=== PATIENT | female | born 1970 | race Caucasian/White ===

== ENCOUNTER 2017-12-27 14:42 | Day surgery (SDC) | payer OTHER, SELFPAY ==
--- NOTE | 2017-12-27 | PATH_ITS ---
[facility] Accession Number: [id number] . 01 Material submitted: . PART A: DUODENIUM PART B: GASTRIC PART C: GE JUNCTION . 02 Diagnosis: A. Duodenum, Biopsy: Duodenal mucosa with no diagnostic abnormality. Negative for active inflammation, features of sprue, dysplasia and malignancy. . B. Stomach, Biopsies: Antral mucosa with no diagnostic abnormality. Negative for intestinal metaplasia. No evidence of Helicobacter on H/E stain. Negative for dysplasia and malignancy. . C. Gastroesophageal Junction, Biopsy: Squamocolumnar junctional mucosa with no diagnostic abnormality. Negative for intestinal metaplasia. Negative for dysplasia and malignancy. [facility]/12/29/2017 . 02 Electronically signed: . Luann Garza MD, Pathologist NPI- [id number] . 01 Gross description: . Part A: DUODENIUM: Received in formalin is 1 fragment(s) of gonzales, soft tissue measuring 0.2 x 0.2 x 0.1 cm submitted entirely in 1 cassette(s) Part B: GASTRIC: Received in formalin are 2 fragment(s) of gonzales, soft tissue measuring 0.3 x 0.2 x 0.2 cm to 0.2 x 0.2 x 0.1 cm submitted entirely in 1 cassette(s) Part C: GE JUNCTION: Received in formalin are 3 fragment(s) of gonzales, soft tissue measuring 0.2 x 0.2 x 0.1 cm to 0.1 x 0.1 x 0.1 cm submitted entirely in 1 cassette(s) /TRC /TRC . 02 Pathologist provided ICD-10: R10.9 . 02 CPT . 131862, 545406, [id number] Performed at: [address], [place], [place] [id number] MD Carlos Mcdaniel MD Phone: [phone] Performed at: 02 [facility] [place] [address] [place] [id number] MD Dillon Truong MD Phone: [phone]
[2017-12-27] MEDS: SODIUM CHLORIDE 0.9% 1,000 ML 200 ML IV (15:18)
[2017-12-27 15:19] VITALS: BP 115/77; RESP 16; TEMP 36.2; O2SAT 100; BMI 20.5
--- NOTE | 2017-12-27 16:11 | SUR.OPER ---
to endo from opd via cart tespirations unlabored iv patent positioned per self for procedure
--- NOTE | 2017-12-27 16:12 | P.HP_ITS ---
History of Present Illness Date Patient Seen: 12/27/17 Time Patient Seen: 16:09 Chief complaint: [id number] Narrative: Sabra 47-year-old lady referred by [facility] [employer] for EGD and colonoscopy. She reports her last colonoscopy was about 5 years ago and she did have some polyps removed. More acutely, she has been having severe reflux and burning sensation in her stomach. When her colonoscopy was done about 5 years ago they attempted an EGD at the same time but she did not wish to be put to sleep and they were not able to pass the scope with her fully awake. That portion of the procedure was aborted but she did go ahead and have a colonoscopy. She is here today to schedule an EGD and she understands that she will have to be very sleepy for us to be able to pass the gastroscope into her esophagus. She says she is willing to do that now because she needs some help for this burning problem. Patient History Family & Social History Family History: Reviewed 12/27/17 by Maile Solares MD Social History: household members spouse Meds Home Medications Medication Instructions Recorded Confirmed Type omeprazole 40 mg PO BID #60 cap 10/21/17 Rx ranitidine HCl [Zantac] 150 mg PO BID #60 tab 10/21/17 Rx alprazolam [Xanax] 0.5 mcg/kg PO PRN PRN 12/27/17 12/27/17 History bupropion HCl [Wellbutrin XL] 150 mg PO QAM 12/27/17 12/27/17 History levothyroxine [Levoxyl] 112 mcg PO DAILY 12/27/17 12/27/17 History Allergies Allergy/AdvReac Type Severity Reaction Status Date / Time doxycycline Allergy Unknown Gastrointestinal Verified 12/27/17 15:09 Upset erythromycin base Allergy Unknown Gastrointestinal Verified 12/27/17 15:09 Upset Sulfa (Sulfonamide Allergy Unknown Unverified 12/27/17 15:09 Antibiotics) [SULFA (SULFONAMIDE ANTIBIOTICS)] ondansetron [From Zofran] AdvReac Unknown Agitated Verified 12/27/17 15:14 Review of Systems Review of Systems All systems reviewed & are unremarkable except as noted in HPI and below Exam Vital Signs (past 8 hours): Vital Signs - 8 hr 3 12/27/17 15:19 Temperature 97.2 F L Respiratory Rate 16 Blood Pressure 115/77 Pulse Oximetry 100 Pulse Oximetry 100 Oxygen Delivery Method Room Air Narrative Exam Narrative: Pleasant well-nourished well-developed lady in no obvious distress HEENT: Normocephalic and atraumatic, pupils equal round reactive to light accommodation with anicteric sclera Lungs: Clear bilaterally Heart: Regular rate and rhythm without murmur rub or gallop Abdomen: Soft, nontender, active bowel sounds Extremities: Warm and well-perfused without edema Assessment & Plan Plan: Assessment/Plan Narrative: We have discussed the risks and benefits of EGD and colonoscopy including but not limited to infection, bleeding, damage to other organs or structures in the area, the risk of unexpected findings or result, and the risks associated with anesthesia including stroke, heart attack, and . Patient expressed an understanding of the risks and desired to have the procedure.
[2017-12-27 16:51] VITALS: BP 106/69; PULSE 78; RESP 12; TEMP 36.6; O2SAT 98
--- NOTE | 2017-12-27 16:51 | PM.OP.1 ---
Operative Date/Time/Diagnoses - Date of procedure: 12/27/17 Time of procedure: 16:51 Pre-op diagnosis: GERD Personal History of Colon Polyps Post-op diagnosis: same Procedure & Clinicians Procedure: Esophagogastroduodenoscopy with biopsies and colonoscopy Same procedure as scheduled: Yes Indications: GERD Personal history of colon polyps with last colonoscopy 5 years ago Surgeon: Maile Solares Click Yes if Unassisted: Yes Anesthesia Type: Sedation (fentanyl 300 mcg, versed 10 mg) Operative Notes Findings: 1. Normal duodenum 2. Very mild gastritis 3. GE junction at 39 cm from the incisors 4. Very regular appearing Z line with no evidence of hiatal hernia 5. Excellent prep 6. No polyps or mass lesions and no AV malformation 7. Grade 1 internal hemorrhoids Closure Type: not applicable Specimen(s): other (1. Cold forceps biopsy of the duodenum, 2. Cold forceps biopsy of the antrum, 3. Cold forceps biopsy of the GE junction) Estimated Blood Loss (mL): 1 Procedure in detail: After obtaining informed consent, the patient was brought to the GI suite and placed in the left lateral decubitus position on the examination table. After placement of appropriate monitors, the patient was given incremental doses of Versed and Fentanyl until an appropriate level of sedation was achieved. A time out was held per SCOAP protocol. We began with EGD. A bite block was gently placed between the patient's teeth. The endoscope was lubricated and then passed into the patient's posterior oropharynx. The esophagus was cannulated under direct vision and the scope was passed to the second portion of the duodenum without difficulty. The scope was then withdrawn with careful examination of all areas of the upper GI tract and mucosa. In the stomach, the instrument was retroflexed and the GE junction examined. The scope was straightened and the procedure continued with examination of the remainder of the upper GI tract. Findings are noted above. Air was aspirated from the stomach and the endoscope gently removed from the esophagus. The examination table was turned and we continued with the colonoscopy. A digital rectal examination was performed and did not reveal any masses or obstructing lesions. The colonoscope was gently passed into the patient's anus and the entire colon navigated to the level of the cecum with minimal difficulty. Once in the cecum, the scope was withdrawn being sure to go before and beyond all mucosal folds and prominences and get an excellent examination. The findings are noted above. At the level of the rectal vault, the scope was retroflexed and the internal anal canal was examined. The scope was straightened and air aspirated from the colon. The instrument was removed from the patient's body and the procedure was concluded. The patient was allowed to awaken from sedation without difficulty and taken to the post-anesthesia care unit in good condition. Total sedation time was 34 min Total colonoscopy withdrawal time was 13 min Complications: none Condition: stable Disposition: PACU Plan for aftercare: 1. Discharge to home 2. Plan for next colonoscopy in 5 years due to patient's history 3. Will contact you with pathology results and further recommendations
[2017-12-27] MEDS: fentaNYL 250 MCG/5 ML INJ IV (16:52)
[2017-12-27] MEDS: MIDAZOLAM 5 MG/5 ML VIAL IV (16:53)
[2017-12-27] MEDS: TETRACAINE/BENZOCAINE/BUTAMBEN (CETACAINE) BOTTLE 1 SPRAY TOP (16:54)
[2017-12-27] MEDS: LIDOCAINE 4% SOLN 50 ML 20 ML TOP (16:55)
[2017-12-27 16:56] VITALS: BP 106/69; PULSE 100; RESP 18; O2SAT 98
[2017-12-27 17:14] VITALS: BP 108/75; PULSE 80; RESP 15; TEMP 36.4; O2SAT 96
== END 2017-12-27 17:18 | disposition home or self-care (01) ==
PROVIDERS: PCP Registered Nurse Diabetes Educator; Visit Provider Surgery
PROC: 0DJ08ZZ Inspection of Upper Intestinal Tract, Via Natural or Artificial Opening Endoscopic (ICD-10-PCS; CPT 43235; principal; 2017-12-27 16:00)
PROC: 0DJD8ZZ Inspection of Lower Intestinal Tract, Via Natural or Artificial Opening Endoscopic (ICD-10-PCS; CPT 45378; 2017-12-27 16:00)
DX: K21.9 Gastro-esophageal reflux disease without esophagitis (principal); K29.70 Gastritis, unspecified, without bleeding; K64.0 First degree hemorrhoids; E06.3 Autoimmune thyroiditis
CPT/HCPCS: 43239; 45378; 88305; 99152; 99153; J2250; J3010

== ENCOUNTER → 2020-11-07 18:06 | Outpatient (CLI) | payer OTHER, SELFPAY ==
--- NOTE | 2020-11-07 18:08 | DI.MRI.S_ITS ---
PROCEDURE: MR CERVICAL SPINE WO CON INDICATIONS: OTHER SPONDYLOSIS,CERVICAL REGION TECHNIQUE: Noncontrast sagittal T1 spin echo and T2 fast spin echo, sagittal STIR, foraminal oblique sagittal T2 fast spin echo, and axial gradient echo or T2 fast spin echo through the cervical spine. COMPARISON: None. FINDINGS: Image quality: Excellent. Alignment and Curvature: There is normal bony alignment. Bone Marrow: Marrow demonstrates normal overall signal. Spinal Cord: Visualized spinal cord has normal size and signal. No cerebellar tonsillar herniation. Paraspinous Soft Tissues: No paravertebral masses. Prevertebral soft tissues are normal in thickness. C2-C3: Normal appearance. C3-C4: Normal appearance. C4-C5: Normal appearance. C5-C6: Moderate degenerative disc height reduction and disc desiccation with a posterior broad-based transverse disc bulge, which effaces CSF from the anterior thecal sac and is slightly larger on the right than the left. This results in mild anterior spinal stenosis, right greater than left, but no foraminal stenosis.. C6-C7: Zbra-gq-[id number] degenerative disc height reduction and desiccation, with a slight posterior disc bulge which does not efface CSF from the anterior thecal sac and there is no associated foraminal stenosis. C7-T1: Normal appearance. IMPRESSION: Moderate degenerative disc disease at C5-6, mild to moderate such degeneration at C6-7. No foraminal stenosis is found. There is mild anterior C5-6 right greater than left spinal stenosis, with potential for mild impingement on the course of the C5 nerve roots. The foraminal and spinal stenosis present is quite mild and minimal at C6-C7. No definite nerve root impingement at time of MR scanning. No herniated disc fragment is found. Dictated by: Azam Posey M.D. on 11/10/2020 at 13:26 Approved by: Azam Posey M.D. on 11/10/2020 at 13:57
== END ==
PROVIDERS: PCP Student in an Organized Health Care Education/Training Program; Referring Provider Student in an Organized Health Care Education/Training Program; Visit Provider Student in an Organized Health Care Education/Training Program
DX: M47.892 Other spondylosis, cervical region (principal); M50.322 Other cervical disc degeneration at C5-C6 level
CPT/HCPCS: 72141

== ENCOUNTER 2025-01-04 07:49 | Emergency (ER) | payer OTHER, SELFPAY ==
[2025-01-04 08:11] VITALS: BP 160/89; PULSE 97; RESP 20; TEMP 37; O2SAT 98; BMI 24.9
--- NOTE | 2025-01-04 08:14 | DI.RAD.S_ITS ---
PROCEDURE: XR CHEST 2V INDICATIONS: cough TECHNIQUE: 2 views of the chest were acquired. COMPARISON: None. FINDINGS: Surgical changes and devices: None. Lungs and pleura: Lungs are clear. No pleural effusions or pneumothorax. Mediastinum: Mediastinal contours are normal. Heart size is normal. Bones and chest wall: No suspicious bony abnormalities. Soft tissues appear unremarkable. IMPRESSION: No acute cardiopulmonary pathology. Dictated by: Donald Darnell M.D. on 01/04/2025 at 8:39 Approved by: Donald Darnell M.D. on 01/04/2025 at 8:40
--- NOTE | 2025-01-04 08:24 | ED.URI ---
HPI - URI/Sore Throat General Chief Complaint: Upper Respiratory Symptoms Stated Complaint: sore throat, Congestion x 2 weeks Time Seen by Provider: 01/04/25 08:24 Source: patient Mode of arrival: Ambulatory Limitations: no limitations History of Present Illness HPI Narrative: 54-year-old female with complaint of nasal congestion the past 12 days patient states she did have a period where she got better and then started to get worse again she notes new sore throat, her voice is slightly hoarse but she states this is her baseline throughout her life. No fevers or chills. Patient states she was had a cough with clear productive sputum. Patient notes bilateral ear discomfort. Occasional chest discomfort, occasional shortness of breath. No hemoptysis. Occasional nausea but no vomiting. No diaphoresis. No other GI or urinary symptoms. No new swelling in extremities. Patient states she has a history of Ana Luisa's, vitiligo, SVT with prior ablation. Reports an allergy to ondansetron. No tobacco, no alcohol, no recreational drugs. Patient states she was just feel very tired and fatigued today. She does note that she had a. Were did sort of improve and then she got worse again with slightly different symptoms. 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 Related Data Home Medications ?Medication ?Instructions ?Recorded ?Confirmed alprazolam 1 mg tablet (Xanax) 0.5 mcg/kg PO PRN PRN Anxiety 12/27/17 12/27/17 bupropion HCl 150 mg 24 hr tablet, 150 mg PO QAM 12/27/17 12/27/17 extended release (Wellbutrin XL) levothyroxine 112 mcg tablet 112 mcg PO DAILY 12/27/17 12/27/17 (Levoxyl) Previous Rx's ?Medication ?Instructions ?Recorded omeprazole 40 mg capsule,delayed 40 mg PO BID #60 caps 10/21/17 release ranitidine HCl 150 mg tablet 150 mg PO BID #60 tabs 10/21/17 (Zantac) Allergies Allergy/AdvReac Type Severity Reaction Status Date / Time ondansetron (From Zofran) AdvReac Unknown Agitated Verified 01/04/25 08:12 Review of Systems Review of Systems ROS Unobtainable: All systems reviewed & are unremarkable except as noted in HPI and below Patient History Social History household members: spouse Smoking Status: Never smoker Smoking Status: Never smoker Exam Narrative Exam Narrative: GEN: well nourished, well appearing female, alert and oriented x 3, patient appears to be in mild distress. HEENT: Atraumatic, pupils are equal round reactive to light, extraocular movements are intact, nares are clear, TMs are clear with no fluid, there is no conjunctival pallor. Throat is clear without any exudates, erythema, tonsillar enlargement or uvular deviation. Some slight cobblestoning. HEART: Regular rate and rhythm without murmur, clicks, rubs. LUNGS:Lungs clear to auscultation, no wheezes, rales, crackles, chest moves symmetrically, no tachypnea or accessory muscle use ABD:bowel sounds normal, soft, non-tender, no guarding, rebound, rigidity, no masses noted, no hepatosplenomegaly :No CVA tenderness MSCL: Non-tender, no muscle atrophy, muscles strength 5/5 upper and lower extremities, full range of motion, normal gait NEURO:CN 2-12 intact, sensation normal. Initial Vital Signs Initial Vital Signs: Vital Signs Temperature 98.6 F 01/04/25 08:11 Pulse Rate 97 H 01/04/25 08:11 Respiratory Rate 20 01/04/25 08:11 Blood Pressure 160/89 H 01/04/25 08:11 Pulse Oximetry 98 01/04/25 08:11 Oxygen Delivery Method Room Air 01/04/25 08:11 Course Orders Ordered: ED Orders 01/04/25 08:09 Covid-19 + FLU A/B + RSV - PCR Stat Strep Grp A by PCR Rapid Stat 01/04/25 08:14 CXR [XR chest 2V] Stat Vital Signs Vital signs: Vital Signs - 8 hr 01/04/25 08:11 Temperature 98.6 F Pulse Rate 97 H Respiratory Rate 20 Blood Pressure 160/89 H Pulse Oximetry 98 Oxygen Delivery Method Room Air MDM - URI/Sore Throat Lab Data Labs: Lab Results 01/04/25 Range/Units 08:09 SARS-CoV-2 (PCR) Negative (Negative) Influenza A (RT-PCR) Flu a negative (NEGATIVE) Influenza B (RT-PCR) Flu b negative (NEGATIVE) RSV (PCR) Negative (Negative) Group A Strep (PCR) Negative (Negative) MDM Narrative Medical decision making narrative: Rapid strep is negative, chest x-ray is negative, respiratory panel with COVID/influenza/RSV is pending. Reviewed findings with the patient was suspect she may have an upper respiratory infection may have caught 1 started to improve and then caught a secondary based on her description of symptoms. Exam is reassuring patient does not meet [facility] criteria. Patient states she was feels comfortable returning home and will follow up her for swab her own. She does not wish to stay for the result. Discharge Plan Departure Patient Disposition: Home Clinical Impression: Upper respiratory infection Instructions: DI for Viral Upper Respiratory Infection -- Adult Activity Restrictions/Additional Instructions: Follow up as needed. If your symptoms continue to be mild but persistent please follow up with primary care. You can take acetaminophen or ibuprofen as needed. You may find it helpful to take an antihistamine such as loratadine daily if not already. Please return for new or changing symptoms. Prescriptions: No Action omeprazole 40 MG capsule,delayed release(DR/EC) 40 mg PO BID Qty: 60 0RF ranitidine HCl [Zantac] 150 MG tablet 150 mg PO BID Qty: 60 0RF alprazolam [Xanax] 1 mg Tablet 0.5 mcg/kg PO PRN PRN (Reason: Anxiety) levothyroxine [Levoxyl] 112 mcg Tablet 112 mcg PO DAILY bupropion HCl [Wellbutrin XL] 150 mg Tablet Extended Release 24 Hr 150 mg PO QAM Referrals: Kayla Bartlett MD [Primary Care Provider, Medical] Stand Alone Forms: Patient Portal/API
[2025-01-04 08:38] LABS: Strep Grp A by PCR Rapid Negative (Negative)
[2025-01-04 09:11] VITALS: BP 125/82; PULSE 80; RESP 20; TEMP 36.6; O2SAT 99
[2025-01-04 09:13] LABS: Influenza A - CEPHEID Flu A NEGATIVE (NEGATIVE); Influenza B - CEPHEID Flu B NEGATIVE (NEGATIVE); Respiratory Syncytial Virus Negative (Negative)
[2025-01-04 09:21] LABS: COVID-19 CEPHEID 4-PLEX PCR Negative (Negative)
== END 2025-01-04 09:12 | disposition home or self-care (01) ==
PROVIDERS: Emergency Provider Emergency Medicine; PCP Student in an Organized Health Care Education/Training Program
DX: J06.9 Acute upper respiratory infection, unspecified (principal)
CPT/HCPCS: 0241U; 71046; 87651; 99281; 99283